=== PATIENT | male | born 1970 | race Caucasian/White ===

== ENCOUNTER 2016-11-24 19:05 | Emergency (ER) | payer SELFPAY ==
--- NOTE | ~2016-11-24 | ER ---
PATIENT'S NAME: RUDOLPH MONTEIRO [facility] AGE: 46 Y [address] ROOM: [place] [address] LOCATION: ED ADMIT DATE: 11/24/2016 ER/Outpatient Report DISCHARGE DATE: 11/24/2016 FAMILY PHYSICIAN: Dante Hair MD ATTENDING PHYSICIAN: Kira Galloway ADDENDUM: MEDICATIONS: 1. ProAir. 2. Advair. 3. Albuterol p.r.n. ALLERGIES: THE PATIENT HAS AN ALLERGY TO PENICILLIN. ROS: A complete and comprehensive review of systems was completed and is negative except as noted above in the HPI. PHYSICAL EXAMINATION: VITAL SIGNS: Weight 111.6 kilos; blood pressure 154/83; pulse 123 upon arrival; rates in the 80s upon examination; respiratory rate 22 upon arrival; respirations 16 upon examination; temperature 98.2, TM; O2 96% on room air. GENERAL: In no acute distress, breathing comfortably and alert and oriented x4. HEENT: Normocephalic and atraumatic. Nares are patent without drainage. Conjunctivae normal. Tympanic membranes are clear bilaterally. Moist mucous membranes. No lymphadenopathy. CHEST: Clear to auscultation bilaterally without any wheezing, rales, or rhonchi. Able to hear breath sounds throughout all lung fan. CARDIOVASCULAR: Regular rate and rhythm. No murmurs, rubs, or gallops. ABDOMEN: Normal inspection, soft, nontender, and nondistended. EXTREMITIES: Moves all extremities. No pedal edema. SKIN: Warm, dry, and intact. No rash. Independent with ADLs and appears well-nourished, hydrated. LABORATORY DATA: No labs or imaging were performed during the patient's stay. IMPRESSION: Asthma exacerbation, now resolved. ED COURSE AND PLAN: The patient received 60 mg p.o. dose of prednisone. Counseled on avoiding PATIENT'S NAME: RUDOLPH MONTEIRO [facility] AGE: 46 Y [address] ROOM: [place] [address] LOCATION: [facility] ADMIT DATE: 11/24/2016 ER/Outpatient Report DISCHARGE DATE: 11/24/2016 FAMILY PHYSICIAN: Dante Hair MD ATTENDING PHYSICIAN: Kira Galloway triggers and advised to follow up with his primary care doctor in the next 2-3 days as he may need a medication adjustment since he admits his asthma does not feel to be as well controlled as previously. JOBY RODRIGUES MED STUDENT, RESIDENT FOR MD DONNA FLOWERS/darron /[id number] d: 11/25/16 0153 t: 11/25/16 1835, OUTPATIENT REPORT
--- NOTE | ~2016-11-24 | ER ---
PATIENT'S NAME: RUDOLPH MONTEIRO [facility] AGE: 46 Y [address] ROOM: [place] [address] LOCATION: [facility] ADMIT DATE: 11/24/2016 ER/Outpatient Report DISCHARGE DATE: 11/24/2016 FAMILY PHYSICIAN: Dante Hair MD ATTENDING PHYSICIAN: Kira Galloway HISTORY OF PRESENT ILLNESS: The patient is a 46-year-old male with chief complaint of asthma attack. States this started about an hour ago. He tried some of his home treatments of albuterol and felt this was not helping, so he decided to come in to be seen. The patient states even just prior to arrival, he started to feel some improvement in his symptoms and now his symptoms are greatly improved. He denies any nausea, vomiting, chest pain. He still feels mildly short of breath but denies wheezing at this time. He was wheezing during his attack at home. The patient denies fevers, chills, abdominal pain, urinary symptoms, increased swelling, or rash. The patient feels that maybe this was triggered by cooking at home and it was pretty smoky and feels that this exposure might have induced his attack. PAST MEDICAL HISTORY: The patient has a past medical history of asthma and hypertension, and he has had previous shoulder surgery on the right. SOCIAL HISTORY: The patient denies any smoking. He admits to daily alcohol use and denies any illicit drug use. The patient was offered alcohol counseling and declined. JOBY ORTEGA STUDENTMD RESIDENT FOR MD DONNA FLOWERS/modl /[id number] d: 11/25/16111 t: 11/25/161831, OUTPATIENT REPORT
--- NOTE | ~2016-11-24 | ER ---
PATIENT'S NAME: RUDOLPH MONTEIRO [facility] AGE: 46 Y [address] ROOM: [place] [address] LOCATION: [facility] ADMIT DATE: 11/24/2016 ER/Outpatient Report DISCHARGE DATE: 11/24/2016 FAMILY PHYSICIAN: Dante Hair MD ATTENDING PHYSICIAN: Kira Galloway ADDENDUM: Please see Dr. Lam' note, the resident, as she has dictated this as well. I did my own history and physical exam and I agree with the assessment and plan in her note. MD ANDREW FLOWERS/darron /[id number] d: 11/25/16 0418 t: 11/26/16 0013, OUTPATIENT REPORT
== END 2016-11-24 19:26 | disposition disaster alternative care site (69) ==
LOC: GMED 19:05
DX: J45.901 Unspecified asthma with (acute) exacerbation (principal); I10 Essential (primary) hypertension; Z88.0 Allergy status to penicillin
CPT/HCPCS: J7512